=== PATIENT | female | born 1960 | race African-American/Black ===

== ENCOUNTER 2021-04-24 01:23 | Emergency (ER) | payer OTHER ==
[2021-04-24 01:37] VITALS: BP 124/79; PULSE 83; TEMP 98.9; BMI 26.5
== END 2021-04-24 05:21 | disposition home or self-care (01) ==
LOC: JER 01:23
DX: U07.1 COVID-19 (principal); R05.1 Acute cough
CPT/HCPCS: 71046-TC-FY; 93005; 93010; 99285-25